=== PATIENT | female | born 1960 | race Caucasian/White ===

== ENCOUNTER → 2016-03-05 | Outpatient (CLI) | payer OTHER ==
[~2016-03-05] VITALS: Ht 167.6 cm; Wt 100.0 kg
[~2016-03-05] MED LIST: 00186-0370-20 IH; ADVAIR DISKUS 21 DSK IH; ALBUTEROL SULFAT3 M3 IH; ALBUTEROL1.25 MG/3 IH; ASPIRIN 32325 MG/TAB PO; ASPIRIN 81M81 MG/TA2 PO; CELEBREX200 MG PO; CIPRO 500MG TA500 MG PO; COLESTID 1GM1 G PO; COZAAR 25MG25 MG/TAB PO; COZAAR 50MG50 MG/TAB PO; FISH OIL CONCEN1 SGL PO; GLUCOPHAGE500 MG/TAB; IRON90 MG PO; LIPITOR 10MG10 MG PO; LISINOPRIL10 MG PO; LORTAB 5/500 501 TAB PO; METRONIDAZOLE500 MG PO; MULTIVITAMIN FO1 CAP PO; NORCO 325 MG-51 TAB PO; ONGLYZA2.5 MG PO; PREDNISONE20 MG PO; PRENATAL1 TA1 PO; PROVENTIL0.09 MG/A1 IH; VENTOLIN0.09 MG IH; VICODIN 5/5001 UDTAB PO; ZESTRIL 5MG5 MG PO; ZITHROMAX TRI-500 MG PO; ZOFRAN ODT4 MG PO; ZYRTEC 10MG10 MG PO
[2016-03-05 10:07] VITALS: BP 116/49; PULSE 92
[2016-03-05 11:01] VITALS: BP 154/71; PULSE 68
[2016-03-05 12:05] VITALS: BP 116/49; PULSE 92
[2016-03-05 12:06] VITALS: BP 139/58; PULSE 97
[2016-03-05 12:08] VITALS: BP 116/60; PULSE 80
== END ==
LOC: COL.CARD 10:29
DX: R07.89 Other chest pain (principal)
CPT/HCPCS: A9502; J2785

== ENCOUNTER 2016-03-31 10:06 | Emergency (ER) | payer OTHER ==
[~2016-03-31] VITALS: Ht 167.6 cm; Wt 99.5 kg
[~2016-03-31 10:06] MED LIST changes: -ASPIRIN 81M81 MG/TA2 PO
[2016-03-31 10:12] VITALS: TEMP 98.2
[2016-03-31 11:15] LABS: ADJUSTED CALCIUM 9.8 mg/dL (8.4-10.2); ALANINE AMINOTRANSFERASE 34 U/L (9-52); ALBUMIN 4.1 gm/dL (3.5-5.0); ALKALINE PHOSPHATASE 78 U/L (50-136); ANION GAP 12 mmol/L (7-16); BILIRUBIN,TOTAL 0.6 mg/dL (0.0-1.0); BLOOD UREA NITROGEN 16 mg/dL (7-17); CALCIUM 9.9 mg/dL (8.4-10.2); CARBON DIOXIDE 26 mmol/L (22-30); CHLORIDE 102 mmol/L (98-107); CREATININE, serum 0.81 mg/dL (0.52-1.25); GLUCOSE 167 mg/dL (74-106); SODIUM 141 mmol/L (137-145); TOTAL PROTEIN 7.4 gm/dL (6.4-8.2)
[2016-03-31] MEDS ORDERED: ASPIRIN 81M81 MG/TA2 PO (11:26)
[2016-03-31] MEDS ORDERED: COZAAR 50MG50 MG/TAB PO (11:27)
[2016-03-31 11:35] LABS: TROPONIN-I < 0.012 ng/mL (0.000-0.034)
[2016-03-31 11:46] LABS: BASO % 0.5 % (0.0-2.0); EOS # 0.2 (0.0-0.7); EOS % 2.3 % (0-4.0); GRAN # 4.4 (1.4-6.5); GRAN % 65.4 % (42.2-75.2); HEMATOCRIT 39.9 % (37.0-47.0); HEMOGLOBIN 12.9 g/dl (12.5-16.0); LYMPH # 1.4 (1.2-3.4); LYMPH % 20.7 % (20.0-51.0); MEAN CELL VOLUME 85 fl (80.0-100.0); MEAN CORPUSCULAR HEMOGLOBIN 28 pg (27.0-31.0); MEAN CORPUSCULAR HGB CONC 32 g/dl (33.0-37.0); MEAN PLATELET VOLUME 10.3 fl (7.4-10.4); MONO # 0.7 (0.1-0.6); MONO % 10.5 % (1.7-9.3); PLATELET COUNT 265 K/mm3 (130-400); RED BLOOD COUNT 4.69 M/mm3 (4.10-5.30); REDCELL DISTRIBUTION WIDTH-CV 14.4 % (11.5-14.5); WHITE BLOOD COUNT 6.7 K/mm3 (4.8-10.8)
[2016-03-31 13:03] VITALS: BP 103/60; PULSE 69
== END 2016-03-31 13:04 | disposition home or self-care (01) ==
LOC: COL.ER 10:06
PROVIDERS: Emergency Medicine; Nurse Practitioner
DX: R07.9 Chest pain, unspecified (principal); I10 Essential (primary) hypertension; E11.9 Type 2 diabetes mellitus without complications; Z79.84 Long term (current) use of oral hypoglycemic drugs; E78.5 Hyperlipidemia, unspecified; Z82.49 Family history of ischemic heart disease and other diseases of the circulatory system

== ENCOUNTER 2018-01-01 22:10 | Emergency (ER) | payer MEDICARE, OTHER ==
[~2018-01-01] VITALS: Ht 167.6 cm; Wt 104.5 kg
[~2018-01-01 22:10] MED LIST changes: +ASPIRIN 81M81 MG/TA2 PO
[2018-01-01 22:22] VITALS: TEMP 97.9
[2018-01-01 22:30] LABS: BASO % 0.3 % (0.0-2.0); EOS # 0.2 (0.0-0.7); EOS % 1.6 % (0-4.0); GRAN # 6.8 (1.4-6.5); GRAN % 69.3 % (42.2-75.2); HEMATOCRIT 41.7 % (37.0-47.0); HEMOGLOBIN 13.7 g/dl (12.5-16.0); LYMPH # 1.9 (1.2-3.4); LYMPH % 19.7 % (20.0-51.0); MEAN CELL VOLUME 87 fl (80.0-100.0); MEAN CORPUSCULAR HEMOGLOBIN 29 pg (27.0-31.0); MEAN CORPUSCULAR HGB CONC 33 g/dl (33.0-37.0); MEAN PLATELET VOLUME 10.2 fl (7.4-10.4); MONO # 0.9 (0.1-0.6); MONO % 8.8 % (1.7-9.3); PLATELET COUNT 278 K/mm3 (130-400); RED BLOOD COUNT 4.79 M/mm3 (4.10-5.30); REDCELL DISTRIBUTION WIDTH-CV 13.4 % (11.5-14.5)
[2018-01-01 22:34] LABS: PROTHROMBIN TIME 11.1 SECONDS (9.7-12.8)
[2018-01-01 22:39] LABS: D-DIMER < 200.00 ng/mLDDu (200-230)
[2018-01-01 22:41] LABS: ALANINE AMINOTRANSFERASE 44 U/L (9-52); ALBUMIN 4.5 gm/dL (3.5-5.0); ALKALINE PHOSPHATASE 66 U/L (50-136); ANION GAP 8 mmol/L (7-16); AST,SGOT 26 U/L (15-37); BILIRUBIN,TOTAL 0.2 mg/dL (0.0-1.0); BLOOD UREA NITROGEN 15 mg/dL (7-17); CALCIUM 9.8 mg/dL (8.4-10.2); CARBON DIOXIDE 26 mmol/L (22-30); CHLORIDE 107 mmol/L (98-107); CREATININE, serum 0.83 mg/dL (0.52-1.25); GLUCOSE 113 mg/dL (74-106); LIPASE 68 U/L (23-300); SODIUM 141 mmol/L (137-145); TOTAL PROTEIN 7.7 gm/dL (6.4-8.2)
[2018-01-01 23:08] LABS: TROPONIN-I < 0.012 ng/mL (0.000-0.034)
[2018-01-02 01:58] VITALS: BP 121/72; PULSE 72
== END 2018-01-02 01:59 | disposition home or self-care (01) ==
LOC: COL.ER 22:10
PROVIDERS: Emergency Medicine
DX: R07.89 Other chest pain (principal); E11.9 Type 2 diabetes mellitus without complications; I10 Essential (primary) hypertension; E78.00 Pure hypercholesterolemia, unspecified; Z79.82 Long term (current) use of aspirin
CPT/HCPCS: J7030

== ENCOUNTER 2018-02-20 09:08 | Emergency (ER) | payer MEDICARE, OTHER ==
[~2018-02-20] VITALS: Ht 167.6 cm; Wt 90.9 kg
[2018-02-20 09:11] VITALS: BP 144/75; TEMP 98.5
[2018-02-20] MEDS ORDERED: AMOXICILLIN 8751 TAB PO (09:42)
[2018-02-20] MEDS ORDERED: FLONASEALLERGY NS (09:42)
[2018-02-20 09:50] VITALS: PULSE 78
== END 2018-02-20 09:51 | disposition home or self-care (01) ==
LOC: COL.ER 09:08
DX: J32.9 Chronic sinusitis, unspecified (principal); E78.5 Hyperlipidemia, unspecified; E11.9 Type 2 diabetes mellitus without complications; I10 Essential (primary) hypertension; J45.909 Unspecified asthma, uncomplicated; Z90.710 Acquired absence of both cervix and uterus; Z98.890 Other specified postprocedural states; Z79.82 Long term (current) use of aspirin; Z79.84 Long term (current) use of oral hypoglycemic drugs

== ENCOUNTER → 2018-04-27 | Outpatient (CLI) | payer OTHER, MEDICARE ==
[~2018-04-27] MED LIST changes: +AMOXICILLIN 8751 TAB PO; +FLONASEALLERGY NS
== END ==
LOC: MC.RAD 08:41
DX: Z12.31 Encounter for screening mammogram for malignant neoplasm of breast (principal)

== ENCOUNTER → 2018-08-17 | Outpatient (CLI) | payer OTHER, MEDICARE | LOC: COL.RAD 07:02 | DX: M48.061 Spinal stenosis, lumbar region without neurogenic claudication (principal); F43.8 Other reactions to severe stress; M53.3 Sacrococcygeal disorders, not elsewhere classified ==

== ENCOUNTER 2018-09-18 14:29 | Emergency (ER) | payer MEDICARE ==
[~2018-09-18] VITALS: Ht 167.6 cm; Wt 102.3 kg
[2018-09-18 14:36] VITALS: TEMP 97.9
[2018-09-18 15:22] LABS: ALANINE AMINOTRANSFERASE 31 U/L (9-52); ALKALINE PHOSPHATASE 72 U/L (50-136); ANION GAP 8 mmol/L (7-16); AST,SGOT 26 U/L (15-37); BILIRUBIN,TOTAL 0.2 mg/dL (0.0-1.0); BLOOD UREA NITROGEN 14 mg/dL (7-17); CALCIUM 9.7 mg/dL (8.4-10.2); CARBON DIOXIDE 25 mmol/L (22-30); CHLORIDE 108 mmol/L (98-107); CREATININE, serum 0.81 (0.52-1.25); GLUCOSE 109 mg/dL (74-106); LIPASE 78 U/L (23-300); SODIUM 141 mmol/L (137-145)
[2018-09-18 15:26] LABS: BASO % 0.3 % (0.0-2.0); EOS # 0.1 (0.0-0.7); EOS % 0.5 % (0-4.0); GRAN # 8.2 (1.4-6.5); GRAN % 81.2 % (42.2-75.2); HEMOGLOBIN 13.2 g/dl (12.5-16.0); LYMPH % 10.3 % (20.0-51.0); MEAN CELL VOLUME 87 fl (80.0-100.0); MEAN CORPUSCULAR HEMOGLOBIN 28 pg (27.0-31.0); MEAN CORPUSCULAR HGB CONC 32 g/dl (33.0-37.0); MONO # 0.8 (0.1-0.6); MONO % 7.4 % (1.7-9.3); PLATELET COUNT 282 K/mm3 (130-400); RED BLOOD COUNT 4.73 M/mm3 (4.10-5.30); REDCELL DISTRIBUTION WIDTH-CV 13.9 % (11.5-14.5)
[2018-09-18 15:35] LABS: TROPONIN-I < 0.012 ng/mL (0.000-0.035)
[2018-09-18 17:05] VITALS: BP 121/61; PULSE 84
== END 2018-09-18 17:05 | disposition home or self-care (01) ==
LOC: COL.ER 14:29
PROVIDERS: Emergency Medicine
DX: J45.909 Unspecified asthma, uncomplicated (principal); E11.9 Type 2 diabetes mellitus without complications; I10 Essential (primary) hypertension; E78.5 Hyperlipidemia, unspecified; J18.9 Pneumonia, unspecified organism; Z79.82 Long term (current) use of aspirin; Z79.51 Long term (current) use of inhaled steroids

== ENCOUNTER 2018-10-05 16:40 | Inpatient (IN) | payer OTHER ==
[~2018-10-05] VITALS: Ht 167.6 cm; Wt 101.3 kg
[2018-11-04] VITALS (12 sets, daily range): BP systolic 100–136; BP diastolic 43–82; PULSE 60–95; TEMP 96.8–98.8
[2018-11-04] MEDS ORDERED: ZETIA 10MG TAB10 MG PO ×2 (05:22→13:07)
[2018-11-04] MEDS ORDERED: ASMANEX TW110 MCG/Ac IH (05:24)
[2018-11-04] MEDS ORDERED: ZANTAC 150MG T150 MG PO (05:26)
--- NOTE | 2018-11-04 05:37 | NUR ---
Pt. arrived to the floor independently ambulating from addmissions. Pt. is A&OX3, assessment complete. Pre-op in progress.
--- NOTE | 2018-11-04 07:00 | NUR ---
Report from Den BELLA.
[2018-11-04 11:36] LABS: TROPONIN-I < 0.012 ng/mL (0.000-0.035)
[2018-11-04 12:07] LABS: BASO % 0.1 % (0.0-2.0); EOS # 0.1 (0.0-0.7); EOS % 1.1 % (0-4.0); GRAN # 5.3 (1.4-6.5); GRAN % 74.1 % (42.2-75.2); HEMATOCRIT 40.5 % (37.0-47.0); HEMOGLOBIN 12.9 g/dl (12.5-16.0); LYMPH # 1.2 (1.2-3.4); LYMPH % 16.6 % (20.0-51.0); MEAN CELL VOLUME 88 fl (80.0-100.0); MEAN CORPUSCULAR HEMOGLOBIN 28 pg (27.0-31.0); MEAN CORPUSCULAR HGB CONC 32 g/dl (33.0-37.0); MEAN PLATELET VOLUME 10.4 fl (7.4-10.4); MONO # 0.6 (0.1-0.6); MONO % 7.7 % (1.7-9.3); PLATELET COUNT 241 K/mm3 (130-400); RED BLOOD COUNT 4.59 M/mm3 (4.10-5.30)
[2018-11-04 12:12] LABS: ALANINE AMINOTRANSFERASE 28 U/L (9-52); ALBUMIN 3.7 gm/dL (3.5-5.0); ALKALINE PHOSPHATASE 59 U/L (50-136); ANION GAP 6 mmol/L (7-16); AST,SGOT 28 U/L (15-37); BILIRUBIN,TOTAL < 0.1 mg/dL (0.0-1.0); BLOOD UREA NITROGEN 10 mg/dL (7-17); CALCIUM 8.9 mg/dL (8.4-10.2); CARBON DIOXIDE 26 mmol/L (22-30); CHLORIDE 107 mmol/L (98-107); CREATININE, serum 0.72 (0.52-1.25); GLUCOSE 101 mg/dL (74-106); POTASSIUM 4.5 mmol/L (3.4-5.0); SODIUM 140 mmol/L (137-145); TOTAL PROTEIN 6.5 gm/dL (6.4-8.2)
--- NOTE | 2018-11-04 12:46 | NUR ---
patient is back from PACU. resting in bed. c/o aching pain on left knee. PRN pain med given. respiration is regular/unlabored. patient is on )@ at 2 lpm NC lung ascultated clear. apical pulse regular. dressing to left knee is DCI with ice pack in place. patient in bed call light in reach.
--- NOTE | 2018-11-04 13:07 | NUR ---
PT TO ROOM 328 PER BED WITH REPORT FROM QUAN BELLA PACU @1143. PT IS DROWSEY BUT AROUSES TO VERBAL. LUNGS CLEAR. BOWEL SOUNDS PRESENT. DRESSING TO LEFT KNEE CDI WITH BULKY DRESSING OVER INCISION. SCDS AND TEDS BILATERALLY. IV TO PUMP. STUDENT HUONG FINNEGAN WORKING WITH PATEINT AND AGREE WITH ASSESSMENTS CHARTED. HOSPITALIST RHYS MILLER IN TO SEE PATIENT POST OP SEE COMPUTER FOR ORDERS.
--- NOTE | 2018-11-04 13:16 | NUR ---
TELE IMPLIMENTED ORDRED.
--- NOTE | 2018-11-04 13:48 | NUR ---
patient complaining of paching pian on left knee rating at 10. PRN pain medication given.
--- NOTE | 2018-11-04 13:52 | NUR ---
patient is resting on bed. breathing regular, unlabored. denies chest pain at this time. PRN pain medication given for left knee pain. call light with in reach. reported off to primary nurse.
--- NOTE | 2018-11-04 14:39 | NUR ---
SACHA met with the patient to discuss a discharge plan. The patient lives in [place] with her daughter. The patient has a cane and crutches and reports independence with ADLs. The patient's P[facility] is with [facility] in [place] and receives her medications from the [facility] via mail. Patient will utilize [facility] in [place] if medication is needed at discharge. The patient plans to return home upon discharge with her daughter or friend providing transportation. There are no addtional needs at this time
--- NOTE | 2018-11-04 18:58 | NUR ---
Report to Chuyita BELLA.
--- NOTE | 2018-11-05 01:33 | NUR ---
PATIENT HAS BEEN DOING WELL TONIGHT. PAIN MEDICATION WAS GIVEN ONCE AT SHIFT CHANGE. PAIN HAS BEEN CONTROLLED OTHERWISE. BULKY DRESSING TO L KNEE CDI AND COVERED WITH BENJI WRAP. PASHA HOSE AND SCDS ON. PATIENT UP TO DANGLE AT EDGE OF BED. NO FURTHER NEEDS AT THIS TIME. WILL CONTINUE TO MONITOR.
[2018-11-05 04:00] VITALS: BP 117/55; PULSE 87; TEMP 98.8
[2018-11-05 06:29] LABS: HEMATOCRIT 37.3 % (37.0-47.0)
[2018-11-05 07:46] VITALS: BP 125/69; PULSE 84; TEMP 98.2
[2018-11-05 11:29] VITALS: BP 141/50; PULSE 78; TEMP 97.8
--- NOTE | 2018-11-05 11:59 | NUR ---
Patient sitting in bed upon assessment. States he still feels a little "dizzy/funny" after taking the ultram this morning prior to shift change. States she typically does not like the way pain medications make her feel. Patient did not want to take her Cozaar because she was feeling dizzy. All other scheduled medications given. Dressing changed to Aquacell. Scant amount of dried blood on gauze that was removed. Compression stocking applied to left leg. Dressing change and compression stocking application caused significant discomfort leading patient to be tearful. Patient continued to denied wanting any other pain medication other than tylenol and ice at this time because she really wants the dizziness to go away. Will continue to monitor. Call light in reach.
--- NOTE | 2018-11-05 12:15 | NUR ---
stopped by room but nothing needed at this time.
[2018-11-05 16:01] VITALS: BP 130/59; PULSE 79; TEMP 98.1
[2018-11-05 19:43] VITALS: BP 116/38; PULSE 92; TEMP 99
[2018-11-05 19:50] VITALS: BP 126/52
[2018-11-06] VITALS (7 sets, daily range): BP systolic 92–164; BP diastolic 51–78; PULSE 87–114; TEMP 98–99.5
--- NOTE | 2018-11-06 01:55 | NUR ---
PATIENT DOING WELL TONIGHT. HAS BEEN UP TO COMMODE SEVERAL TIMES WITH INCREASING EASE BUT OBVIOUS DISCOMFORT. DILAUDID 0.25 MG GIVEN ONCE FOR PAIN. IV L FOREARM IS SALINE LOCKED. WBG WAS 152. HAS DRANK SEVERAL CUPS OF ICE WATER. AQUACELL TO L KNEE CDI. PASHA HOSE ON. NO FURTHER NEEDS AT THIS TIME.
[2018-11-06 07:09] LABS: HEMOGLOBIN 11.8 g/dl (12.5-16.0)
--- NOTE | 2018-11-06 07:15 | NUR ---
Patient resting in bed with CPAP. Easily awakened. VSS. IV CDI, fluids infusing. Reporting pain 5/10 left knee, did not request pain medication. Aquacell left knee, PASHA hose bilateral lower. No further needs expressed from patient. Call light within reach
[2018-11-06 07:20] LABS: HEMATOCRIT 36.8 % (37.0-47.0)
--- NOTE | 2018-11-06 18:30 | NUR ---
Patient in bed finishing up dinner. Nursing staff has been assisting patient with ambulation and encouraging patient to do as much work with ambulation. Patient reporting pain in left knee, pain medication given when requested. IV CDI. No reported chest pain or SOB. VSS. Patient complaints of constipation, doctor aware and medication ordered. No further needs expressed from patient. Call light within reach
[2018-11-07 04:00] VITALS: BP 182/79; PULSE 98; TEMP 98.9
[2018-11-07 04:52] VITALS: BP 172/79
[2018-11-07 04:58] VITALS: BP 156/77
--- NOTE | 2018-11-07 06:30 | NUR ---
Patient slept well throughout the night. Pain medication around 0130 effective. Stand-pivots to the commode. Is able to get to the edge of the bed without help. Dressing CDI. No complaints of chest pain noted. Will report off to day shift nurse.
[2018-11-07] MEDS ORDERED: ASPI325T6 PO (07:11)
[2018-11-07] MEDS ORDERED: ULTRAM 50MG TAB50 MG PO (07:12)
[2018-11-07] MEDS ORDERED: ROXICODONE 55 MG/TAB PO (07:12)
[2018-11-07] MEDS ORDERED: SENOKOT S 50 MG1 TAB PO (07:12)
[2018-11-07 08:36] VITALS: BP 114/43; PULSE 93; TEMP 98.6
--- NOTE | 2018-11-07 10:07 | NUR ---
Initial visit; Patient thanked Vehicle Washer for looking in on her. Juanita stated that she is a Business Applications Analyst. Vehicle Washer requested that she keep her in her prayers.
[2018-11-07 11:39] VITALS: BP 110/50; PULSE 91; TEMP 98.3
--- NOTE | 2018-11-07 12:15 | NUR ---
PAIN MEDICATION OFFERED AND PT REFUSED.
--- NOTE | 2018-11-07 13:21 | NUR ---
SOLAR CONSULTANT HAS ARRANGED FOR [facility]. PT AND FAMILY AWARE.
--- NOTE | 2018-11-07 13:24 | NUR ---
The patient is to discharge home today, 11/07. Physical therapy is recommending a walker. SACHA faxed order to [facility] at [facility]. The PA does not deliver walkers. SACHA informed the patient. The patient was agreeable to supervisor picking crew the walker and will pick it up tomorrow 11/08. SACHA contacted [employer] [address] [place] [phone] to inform them. The patient states she will also contact them. There are no additional needs at this time.
--- NOTE | 2018-11-07 14:49 | NUR ---
pt taken out with wheel chair by staff to family waiting downstairs.
== END 2018-11-07 14:51 | disposition home or self-care (01) | DRG 470 ==
LOC: JCC 11-04 05:08
PROVIDERS: Nurse Anesthetist, Certified Registered; Physician Assistant; ADMIT Orthopaedic Surgery
PROC: 0SRD0J9 Replacement of Left Knee Joint with Synthetic Substitute, Cemented, Open Approach (ICD-10-PCS; principal; 2018-11-04 07:30)
DX: M17.12 Unilateral primary osteoarthritis, left knee (principal); Z96.651 Presence of right artificial knee joint; M06.9 Rheumatoid arthritis, unspecified; G47.30 Sleep apnea, unspecified; E11.9 Type 2 diabetes mellitus without complications; I10 Essential (primary) hypertension; E78.00 Pure hypercholesterolemia, unspecified; K21.9 Gastro-esophageal reflux disease without esophagitis; E78.5 Hyperlipidemia, unspecified; G47.33 Obstructive sleep apnea (adult) (pediatric); K59.00 Constipation, unspecified; J45.909 Unspecified asthma, uncomplicated; R07.89 Other chest pain; G89.29 Other chronic pain; Z99.89 Dependence on other enabling machines and devices; Z79.82 Long term (current) use of aspirin; Z86.73 Personal history of transient ischemic attack (TIA), and cerebral infarction without residual deficits; Z90.710 Acquired absence of both cervix and uterus
CPT/HCPCS: 99222; 99231-AI; A4314; C1776; J0690; J1170; J2704; J3010; J7030

== ENCOUNTER 2018-11-10 21:09 | Emergency (ER) | payer OTHER ==
[~2018-11-10] VITALS: Ht 167.6 cm; Wt 100.9 kg
[~2018-11-10 21:09] MED LIST changes: +ASMANEX TW110 MCG/Ac IH; +ASPI325T6 PO; +ROXICODONE 55 MG/TAB PO; +SENOKOT S 50 MG1 TAB PO; +ULTRAM 50MG TAB50 MG PO; +ZANTAC 150MG T150 MG PO; +ZETIA 10MG TAB10 MG PO
[2018-11-10 22:34] LABS: BASO % 0.2 % (0.0-2.0); EOS # 0.3 (0.0-0.7); EOS % 2.7 % (0-4.0); GRAN # 7.6 (1.4-6.5); HEMOGLOBIN 11.6 g/dl (12.5-16.0); LYMPH # 1.1 (1.2-3.4); LYMPH % 10.9 % (20.0-51.0); MEAN CELL VOLUME 86 fl (80.0-100.0); MEAN CORPUSCULAR HEMOGLOBIN 28 pg (27.0-31.0); MEAN CORPUSCULAR HGB CONC 33 g/dl (33.0-37.0); MEAN PLATELET VOLUME 9.6 fl (7.4-10.4); MONO # 1.1 (0.1-0.6); MONO % 10.7 % (1.7-9.3); PLATELET COUNT 347 K/mm3 (130-400); RED BLOOD COUNT 4.11 M/mm3 (4.10-5.30); REDCELL DISTRIBUTION WIDTH-CV 13.9 % (11.5-14.5)
[2018-11-10 22:36] LABS: HEMATOCRIT 35.5 % (37.0-47.0); INR 1.1 (0.8-3.0); PROTHROMBIN TIME 12.4 SECONDS (9.7-12.8)
[2018-11-10 22:39] LABS: PARTIAL THROMBOPLASTIN TIME 31.5 SECONDS (26.0-37.0)
[2018-11-10 22:43] LABS: ALBUMIN 3.8 gm/dL (3.5-5.0); BILIRUBIN,TOTAL 0.4 mg/dL (0.0-1.0); C-REACTIVE PROTEIN 6.4 mg/dL (0.0-0.9); CALCIUM 9.7 mg/dL (8.4-10.2); CREATININE, serum 0.81 (0.52-1.25); POTASSIUM 4.2 mmol/L (3.4-5.0); TOTAL PROTEIN 7.1 gm/dL (6.4-8.2)
[2018-11-11 01:06] VITALS: BP 126/66; PULSE 80; TEMP 98.2
== END 2018-11-11 01:21 | disposition home or self-care (01) ==
LOC: COL.ER 21:09
PROVIDERS: Emergency Medicine
DX: G89.18 Other acute postprocedural pain (principal); M79.605 Pain in left leg; R22.42 Localized swelling, mass and lump, left lower limb; L23.9 Allergic contact dermatitis, unspecified cause; E11.9 Type 2 diabetes mellitus without complications; E78.5 Hyperlipidemia, unspecified; I10 Essential (primary) hypertension; K21.9 Gastro-esophageal reflux disease without esophagitis; J45.909 Unspecified asthma, uncomplicated; Z79.82 Long term (current) use of aspirin; Z79.84 Long term (current) use of oral hypoglycemic drugs; Z96.651 Presence of right artificial knee joint
CPT/HCPCS: J1200; J1650; J2930; J7030

== ENCOUNTER → 2018-11-11 | Outpatient (CLI) | payer OTHER | LOC: COL.RAD 08:40 | DX: M79.89 Other specified soft tissue disorders (principal); R79.89 Other specified abnormal findings of blood chemistry; Z96.659 Presence of unspecified artificial knee joint ==

== ENCOUNTER → 2019-04-05 | Outpatient (CLI) | payer OTHER | LOC: COL.RAD 03-30 09:45 | DX: R10.2 Pelvic and perineal pain (principal); Z90.710 Acquired absence of both cervix and uterus ==

== ENCOUNTER → 2020-03-20 | Outpatient (CLI) | payer OTHER ==
[~2020-03-20] MED LIST changes: +00186-0372-20; +ENBREL50 MG/1 ML SQ; +FLEXERIL 1010 MG/TAB PO; +FOLIC ACID 11 MG/TA1 PO; +METHOTREXA2.5 MG/TAB PO; +MOBIC15 MG PO; +PEPCID 20MG TAB20 MG PO; +SINGULAIR 110 MG/TAB PO; +VITAMIN C500 MG PO; +VITAMIN D 400400 IU PO; +VITAMIN D31000 I1 PO
[2020-03-20 11:38] VITALS: BP 164/80; PULSE 83
[2020-03-20 13:15] VITALS: BP 125/71; PULSE 71
[2020-03-20 13:30] VITALS: BP 127/72; PULSE 70
[2020-03-20 13:45] VITALS: BP 124/75; PULSE 71
[2020-03-20 14:00] VITALS: BP 140/81; PULSE 68
== END ==
LOC: COL.RAD 10:50
DX: Z01.89 Encounter for other specified special examinations (principal); G93.9 Disorder of brain, unspecified; H53.8 Other visual disturbances
CPT/HCPCS: A9585; J2250; J2704; J7030

== ENCOUNTER → 2021-03-28 | Outpatient (CLI) | payer OTHER ==
[~2021-03-28] VITALS: Ht 167.6 cm; Wt 99.6 kg
[~2021-03-28] MED LIST changes: +NESINA12.5 PO; +PRILOSEC 20MG20 MG PO
[2021-03-28 11:58] VITALS: BP 130/65; PULSE 69; TEMP 97.6
[2021-03-28 13:00] VITALS: BP 107/67; PULSE 75
[2021-03-28 13:15] VITALS: BP 124/81; PULSE 72
--- NOTE | 2021-03-28 13:27 | NUR ---
Discharge instructions gone over with pt. Pt verbalized understanding of instructions. Copy given to pt.
[2021-03-28 13:30] VITALS: BP 124/83; PULSE 74
== END ==
LOC: COL.RAD 03-27 11:45
DX: D43.1 Neoplasm of uncertain behavior of brain, infratentorial (principal)
CPT/HCPCS: A9575; J2250; J2704; J7120

== ENCOUNTER → 2021-04-18 | Outpatient (CLI) | payer OTHER | LOC: MC.RAD 10:42 | DX: Z12.31 Encounter for screening mammogram for malignant neoplasm of breast (principal); N64.9 Disorder of breast, unspecified ==

== ENCOUNTER → 2021-04-25 | Outpatient (CLI) | payer OTHER | LOC: MC.RAD 06:58 | DX: N63.21 Unspecified lump in the left breast, upper outer quadrant (principal) ==

== ENCOUNTER → 2021-05-13 | Outpatient (CLI) | payer OTHER | LOC: MC.RAD 09:30 | DX: N60.02 Solitary cyst of left breast (principal) ==

== ENCOUNTER → 2022-05-14 | Outpatient (CLI) | payer OTHER | LOC: MC.RAD 10:21 | DX: Z12.31 Encounter for screening mammogram for malignant neoplasm of breast (principal) ==

== ENCOUNTER 2022-11-17 06:35 | Day surgery (SDC) | payer OTHER ==
[~2022-11-17] VITALS: Ht 167.6 cm; Wt 100.5 kg
[2022-11-17] MEDS ORDERED: WIXELA 100-501 EACH IH (07:13)
[2022-11-17] MEDS ORDERED: MASON NATURAL2000 IU PO (07:15)
[2022-11-17] MEDS ORDERED: XALATAN EYE DROPS OU (07:20)
[2022-11-17 09:05] VITALS: BP 120/62; PULSE 70; TEMP 97.6
[2022-11-17 09:20] VITALS: BP 111/60; PULSE 62
[2022-11-17 09:35] VITALS: BP 119/61; PULSE 60
--- NOTE | 2022-11-17 10:05 | NUR ---
0905 RETURNS TO ROOM 1 PER CART. AWAKE, ALERT. RESP UNLABORED. DENIES NAUSEA, ABD PAIN OR DYSPHAGIA. VITAL SIGNS OBTAINED. CALL LIGHT AT SIDE. 0920 TOLERATES PO JUICE AND PUDDING WITHOUT NAUSEA. SWALLOWS WITHOUT DIFFICULTY. 926 DISCHARGE INSTRUCTIONS REVIEWED. PATIENT VERBALIZES UNDERSTANDING. COPY PROVIDED IN DISCHARGE FOLDER. 926 DR SHAIKH HERE TO VISIT WITH PATIENT. 0940 AMBULATES TO BATHROOM WITH STAND BY ASSIST 0950 DRESSES SELF. AWAITING DAUGHTERS ARRIVAL FOR TRANSPORT HOME
[2022-11-17 10:15] VITALS: BP 130/65; PULSE 71; TEMP 97.5
== END 2022-11-17 10:05 | disposition home or self-care (01) ==
LOC: SDCO 06:35
DX: Z12.11 Encounter for screening for malignant neoplasm of colon (principal); K29.30 Chronic superficial gastritis without bleeding; K21.9 Gastro-esophageal reflux disease without esophagitis; K57.30 Diverticulosis of large intestine without perforation or abscess without bleeding; K64.0 First degree hemorrhoids; K62.89 Other specified diseases of anus and rectum; K31.89 Other diseases of stomach and duodenum; G47.33 Obstructive sleep apnea (adult) (pediatric); Z99.81 Dependence on supplemental oxygen; Z86.010 Personal history of colon polyps
CPT/HCPCS: J2704; J7120